=== PATIENT | female | born 1990 | race Two or more races ===

== ENCOUNTER 2018-07-17 03:55 | Emergency (ER) | payer BC ==
[~2018-07-17] VITALS: Ht 165.1 cm; Wt 89.8 kg
[2018-07-17 04:02] VITALS: BP 119/88
== END 2018-07-17 06:14 | disposition home or self-care (01) ==
LOC: EDBD 03:55 → ER 03:59
DX: S09.90XA Unspecified injury of head, initial encounter (principal); W22.8XXA Striking against or struck by other objects, initial encounter; Y93.89 Activity, other specified; Y99.8 Other external cause status; Y92.89 Other specified places as the place of occurrence of the external cause